=== PATIENT | male | born 1980 | race Caucasian/White ===

== ENCOUNTER 2020-11-16 15:46 | Emergency (ER) | payer OTHER ==
[~2020-11-16] VITALS: Ht 182.9 cm; Wt 90.7 kg
[2020-11-16 16:30] VITALS: BP_SYST 143
--- NOTE | 2020-11-16 16:30 | NUR ---
Pt to remain in ER lobby until ER bed becomes available.
--- NOTE | 2020-11-16 17:32 | NUR ---
Pt to bed 1 for evaluation.
--- NOTE | 2020-11-16 17:36 | NUR ---
ER Dr. BAKER at bedside examining patient.
[2020-11-16] MEDS ORDERED: IBUP-1971 PO (17:58)
[2020-11-16] MEDS ORDERED: HYDR-3917 PO (17:58)
--- NOTE | 2020-11-16 18:03 | NUR ---
SPLINT APPLIED, CIRCULATION AND SENSATION INTACT.
--- NOTE | 2020-11-16 18:12 | NUR ---
Patient given written and verbal discharge instructions and verbalizes understanding. ER MD discussed with patient the results and treatment provided. Patient in stable condition. ID arm band removed. Rx of Larissa SIMON. Patient educated on pain management and to follow up with PMD. Pain Scale 0/10 Opportunity for questions provided and answered. Medication side effect fact sheet provided.
[2020-11-16 18:13] VITALS: BP_SYST 127
== END 2020-11-16 18:12 | disposition home or self-care (01) ==
LOC: SED 15:46
DX: S93.402A Sprain of unspecified ligament of left ankle, initial encounter (principal); Z79.899 Other long term (current) drug therapy; W17.2XXA Fall into hole, initial encounter; Y93.89 Activity, other specified; Y92.89 Other specified places as the place of occurrence of the external cause; Y99.8 Other external cause status
CPT/HCPCS: 99283